=== PATIENT | female | born 1995 | race Native Hawaiian/Other Pacific Islander ===

== ENCOUNTER 2018-02-21 07:32 | Inpatient (IN) | payer OTHER ==
[2018-02-21] MEDS ORDERED: SUBLIMAZE IV PRN (08:10)
[2018-02-21] MEDS ORDERED: POLYCILLIN/NS 2 GM/100 ML 2 GM/100 ML BAG IV ONE (08:10)
[2018-02-21] MEDS ORDERED: XYLOCAINE 2% INFILTRATI ONE (08:10)
[2018-02-21] MEDS ORDERED: ePHEDrine SULFATE IV PRN ×2 (08:10→10:36)
[2018-02-21] MEDS ORDERED: BRETHINE SUB-Q PRN (08:10)
--- NOTE | 2018-02-21 08:19 | History and Physical Report ---
History of Present Illness Date of examination: 02/21/18 (walk in) Date of admission: 02/21/18 08:02 History of present illness: 22yo @ 39 weeks Pt sees a Her last appt was last Wednesday. She gives a hx of anemia with this and her previous - "I had to have a blood transfusion." Pt also states she has a thyroid problem but isn't sure if it is hyper or hypo. No meds. EDC 02-28-18 Preg.Hx: 1. 2012 only complication anemia - had transfusion Pt denies any other medical problems. Denies any surgeries. Denies ETOH, smoking , drug use. Pt states she has had care with . Past History - Obstetrical History Expected Date of Delivery: 02/28/18 Actual Gestation: 39 Week(s) 0 Day(s) : 2 Para: 1 Hx # Term Pregnancies: 1 Number of Living Children: 1 - Vital Signs Vital signs: Vital Signs Pulse BP 54 L 135/90 02/21/18 08:02 02/21/18 08:02 Temp Pulse Resp BP Pulse Ox 54 L 135/90 02/21/18 08:02 02/21/18 08:02 - Physical Exam Breasts: Positive: deferred Cardiovascular: Regular rate, Normal S1, Normal S2 Lungs: Positive: Normal air movement Abdomen: Positive: normal appearance, soft, normal bowel sounds. Negative: distention, tenderness Genitourinary (Female): Positive: normal external genitalia, normal perenium Vulva: both: normal Vagina: Positive: normal moisture. Negative: discharge Cervix: Negative: lesion, discharge Uterus: Positive: normal size, normal contour Adnexa: both: normal Anus/Rectum: Positive: normal perianal skin, heme negative. Negative: rectal mass, hemorrhoids Extremities: Positive: normal Deep Tendon Reflex Grade: Normal +2 - Obstetrical FHR: category 1 Uterine Contraction Monitor Mode: External Cervical Dilatation: 8 (per electronic systems technician) Cervical Effacement Percentage: 90 station: 0 Uterine Contraction Pattern: Regular Uterine Tone Measurement Phase: Resting Uterine Contraction Intensity: Moderate Results All other labs normal. GBS unknown Assessment and Plan 22yo @ 39 weeks by pt date of 02-28-18 Pt has had care with last visit last Wednesday GBS unknown. All OB labs and thyroid function test ordered. aware of admission. Anticipate delivery.
[2018-02-21] MEDS ORDERED: PITOCin/NS 20 UNIT/1000ML DRIP 20 UNITS/1,000 ML BAG IV SCH (09:00)
[2018-02-21] MEDS ORDERED: LACTATED RINGERS 1,000 ML IV SCH (09:00)
[2018-02-21 09:29] LABS: Hematocrit 25.9 % (30.3-42.9); Hemoglobin 8.2 gm/dl (10.1-14.3); Mean Corpuscular HGB Conc 32 % (30-34); Mean Corpuscular Hemoglobin 26 pg (28-32); Mean Corpuscular Volume 82 fl (79-97); Platelet Count 136 K/mm3 (140-440); Red Blood Count 3.16 M/mm3 (3.65-5.03); Red Cell Distribution Width 18.1 % (13.2-15.2)
[2018-02-21 09:35] LABS: Bilirubin,Urine NEG (Negative); Blood,Urine NEG (Negative); Color,Urine Yellow (Yellow); Hyaline Casts,Urine 1 /LPF; Urobilinogen,Urine < 2.0 mg/dL (<2.0)
[2018-02-21] MEDS ORDERED: NARCAN 2 MG/2 ML ONE (09:37)
[2018-02-21 09:41] LABS: Amphetamine Screen,Urine PRESUMPTIVE NEGATIVE; Benzodiazepines Screen,Urine PRESUMPTIVE NEGATIVE; Cannabinoid Screen,Urine PRESUMPTIVE NEGATIVE; Cocaine Screen,Urine PRESUMPTIVE NEGATIVE; Methadone Screen,Urine PRESUMPTIVE NEGATIVE; Opiate Screen,Urine PRESUMPTIVE NEGATIVE
[2018-02-21 09:59] LABS: Free T4 (Free Thyroxine) 0.16 ng/dL (0.76-1.46); Rubella IgG Antibody Immune (Immune)
[2018-02-21] MEDS ORDERED: NARCAN 2 MG/2 ML IV PRN (10:36)
--- NOTE | 2018-02-21 10:37 | Anesthesia Consultation ---
Anesthesia Consult and Med Hx Date of service: 02/21/18 - Airway Anesthetic Teeth Evaluation: Good ROM Head & Neck: Adequate Mental/Hyoid Distance: Adequate Mallampati Class: Class II Intubation Access Assessment: Probably Good - Pre-Operative Health Status ASA Pre-Surgery Classification: ASA2 Proposed Anesthetic Plan: Epidural, Spinal - Pulmonary Hx Asthma: No COPD: No Hx Pneumonia: No - Cardiovascular System Hx Hypertension: No - Central Nervous System Hx Seizures: No Hx Psychiatric Problems: No - Endocrine Hx Renal Disease: No Hx End Stage Renal Disease: No Hx Hypothyroidism: Yes Hx Hyperthyroidism: Yes (unsure of thyroid condition) - Hematic Hx Anemia: No Hx Sickle Cell Disease: No - Other Systems Hx Alcohol Use: No
[2018-02-21] MEDS ORDERED: fentaNYL-BUPIV 2 MCG/ML-0.125% 200 MCG/100 ML BAG EPIDURAL SCH (11:00)
[2018-02-21 11:12] LABS: Anisocytosis 1+; Basophils % (Manual) 0 % (0.0-1.8); Platelet Estimate Cons; Total Cells Counted 100
--- NOTE | 2018-02-21 12:05 | Progress Note ---
Assessment and Plan pt sleeping soundly. SVE BBOW AROM light stained meconium fluid ISE applied. 9, 100,-1 Pit was ordered Too be started. Anticipate delivery Subjective - Subjective Date of service: 02/21/18 (comfortable with epidural) Principal diagnosis: IUP @ 39 weeks walkin to [facility] with Dr. Gar Interval history: 22yo @ 39 weeks Pt sees a Her last appt was last Wednesday. She gives a hx of anemia with this and her previous - "I had to have a blood transfusion." Pt also states she has a thyroid problem but isn't sure if it is hyper or hypo. No meds. EDC 02-28-18 Preg.Hx: 2012 only complication anemia - had transfusion Pt denies any other medical problems. Denies any surgeries. Denies ETOH, smoking , drug use. Pt states she has had care with . Patient reports: movement normal Objective - Vital Signs Vital Signs: Vital Signs - 12hr 02/21/18 02/21/18 02/21/18 08:02 08:45 09:27 Temperature Pulse Rate 54 L 62 Respiratory 20 Rate Blood Pressure 135/90 137/94 O2 Sat by Pulse Oximetry 02/21/18 02/21/18 02/21/18 10:06 10:36 10:53 Temperature Pulse Rate 60 57 L 56 L Respiratory Rate Blood Pressure 116/85 141/96 134/85 O2 Sat by Pulse Oximetry 02/21/18 02/21/18 02/21/18 10:55 10:56 10:57 Temperature Pulse Rate 64 61 51 L Respiratory Rate Blood Pressure 121/61 124/77 O2 Sat by Pulse 98 Oximetry 02/21/18 02/21/18 02/21/18 10:59 11:00 11:01 Temperature Pulse Rate 75 70 60 Respiratory Rate Blood Pressure 109/73 110/75 O2 Sat by Pulse 100 Oximetry 02/21/18 02/21/18 02/21/18 11:03 11:05 11:07 Temperature Pulse Rate 61 71 75 Respiratory Rate Blood Pressure 114/76 109/72 105/73 O2 Sat by Pulse 99 Oximetry 02/21/18 02/21/18 02/21/18 11:09 11:10 11:11 Temperature Pulse Rate 75 80 77 Respiratory Rate Blood Pressure 99/69 102/71 O2 Sat by Pulse 99 Oximetry 02/21/18 02/21/18 02/21/18 11:13 11:15 11:17 Temperature Pulse Rate 55 L 67 64 Respiratory Rate Blood Pressure 119/76 104/75 107/74 O2 Sat by Pulse 99 Oximetry 02/21/18 02/21/18 02/21/18 11:19 11:20 11:21 Temperature Pulse Rate 57 L 60 80 Respiratory Rate Blood Pressure 118/79 104/74 O2 Sat by Pulse 100 Oximetry 02/21/18 02/21/18 02/21/18 11:25 11:27 11:29 Temperature Pulse Rate 58 L 60 56 L Respiratory Rate Blood Pressure 116/75 119/80 122/80 O2 Sat by Pulse 100 Oximetry 02/21/18 02/21/18 02/21/18 11:30 11:31 11:33 Temperature Pulse Rate 72 62 69 Respiratory 12 Rate Blood Pressure 109/70 116/77 111/74 O2 Sat by Pulse 100 Oximetry 02/21/18 02/21/18 02/21/18 11:35 11:37 11:39 Temperature Pulse Rate 73 58 L 65 Respiratory Rate Blood Pressure 109/70 111/70 109/72 O2 Sat by Pulse 99 Oximetry 02/21/18 02/21/18 02/21/18 11:40 11:41 11:42 Temperature 97.7 F Pulse Rate 74 78 Respiratory Rate Blood Pressure 111/70 O2 Sat by Pulse 100 Oximetry 02/21/18 02/21/18 02/21/18 11:43 11:45 11:47 Temperature Pulse Rate 63 73 62 Respiratory Rate Blood Pressure 125/101 104/70 114/77 O2 Sat by Pulse 99 Oximetry 02/21/18 02/21/18 02/21/18 11:49 11:50 11:51 Temperature Pulse Rate 75 73 59 L Respiratory Rate Blood Pressure 106/75 120/77 O2 Sat by Pulse 98 Oximetry 02/21/18 02/21/18 02/21/18 11:53 11:55 11:56 Temperature Pulse Rate 91 H 70 55 L Respiratory Rate Blood Pressure 102/65 129/83 O2 Sat by Pulse 98 Oximetry 02/21/18 02/21/18 02/21/18 11:57 11:59 12:00 Temperature Pulse Rate 64 90 87 Respiratory Rate Blood Pressure 125/66 105/60 O2 Sat by Pulse 98 Oximetry 02/21/18 02/21/18 12:01 12:03 Temperature Pulse Rate 88 55 L Respiratory Rate Blood Pressure 104/62 123/79 O2 Sat by Pulse Oximetry - Exam Breasts: deferred Cardiovascular: Regular rate Lungs: Normal air movement Abdomen: Present: normal appearance, soft. Absent: distention, tenderness Uterus: Present: normal FHR: auscultation normal, category 1 Uterine Contraction Monitor Mode: Internal Cervical Dilatation: 9 (ISE/IUPC placed) Cervical Effacement Percentage: 100 station: -1 Uterine Contraction Pattern: Regular Uterine Tone Measurement Phase: Resting Uterine Contraction Intensity: Moderate Extremities: normal Deep Tendon Reflex Grade: Normal +2 - Labs Labs: Abnormal Labs 02/21/18 02/21/18 08:54 08:54 RBC 3.16 L Hgb 8.2 L Hct 25.9 L MCH 26 L RDW 18.1 H Plt Count 136 L Nucleated RBC % 1.0 H Free T4 0.16 L Laboratory Results - last 24 hr 02/21/18 02/21/18 02/21/18 08:54 08:54 08:54 WBC 7.3 RBC 3.16 L Hgb 8.2 L Hct 25.9 L MCV 82 MCH 26 L MCHC 32 RDW 18.1 H Plt Count 136 L Add Manual Diff Complete Total Counted 100 Seg Neuts % (Manual) 63.0 Band Neutrophils % 0 Lymphocytes % (Manual) 34.0 Reactive Lymphs % (Man) 0 Monocytes % (Manual) 2.0 Eosinophils % (Manual) 1.0 Basophils % (Manual) 0 Metamyelocytes % 0 Myelocytes % 0 Promyelocytes % 0 Blast Cells % 0 Nucleated RBC % 1.0 H Seg Neutrophils # Man 4.6 Band Neutrophils # 0.0 Lymphocytes # (Manual) 2.5 Abs React Lymphs (Man) 0.0 Monocytes # (Manual) 0.1 Eosinophils # (Manual) 0.1 Basophils # (Manual) 0.0 Metamyelocytes # 0.0 Myelocytes # 0.0 Promyelocytes # 0.0 Blast Cells # 0.0 WBC Morphology Not Reportable Hypersegmented Neuts Not Reportable Hyposegmented Neuts Not Reportable Hypogranular Neuts Not Reportable Smudge Cells Not Reportable Toxic Granulation Not Reportable Toxic Vacuolation Not Reportable Dohle Bodies Not Reportable Pelger-Huet Anomaly Not Reportable Roberta Rods Not Reportable Platelet Estimate Cons Clumped Platelets Not Reportable Plt Clumps, EDTA Not Reportable Large Platelets Not Reportable Giant Platelets Not Reportable Platelet Satelliting Not Reportable Plt Morphology Comment Not Reportable RBC Morphology Not Reportable Dimorphic RBCs Not Reportable Polychromasia Not Reportable Hypochromasia Not Reportable Poikilocytosis Not Reportable Anisocytosis 1+ Microcytosis Not Reportable Macrocytosis Not Reportable Spherocytes Not Reportable Pappenheimer Bodies Not Reportable Sickle Cells Not Reportable Target Cells Not Reportable Tear Drop Cells Not Reportable Ovalocytes Not Reportable Helmet Cells Not Reportable Cantu-Buckhead Bodies Not Reportable [place] Rings Not Reportable Meadow Cells Not Reportable Bite Cells Not Reportable Crenated Cell Not Reportable Elliptocytes Not Reportable Acanthocytes (Spur) Not Reportable Rouleaux Not Reportable Hemoglobin C Crystals Not Reportable Schistocytes Not Reportable Malaria parasites Not Reportable Sickle Cell Screen Negative Shravan Bodies Not Reportable Hem Pathologist Commnt No Free T4 Urine Color Yellow Urine Turbidity Clear Urine pH 6.0 Ur Specific Strang 1.009 Urine Protein 100 mg/dl Urine Glucose (UA) Neg Urine Ketones Neg Urine Blood Neg Urine Nitrite Neg Urine Bilirubin Neg Urine Urobilinogen < 2.0 Ur Leukocyte Esterase Neg Urine WBC (Auto) 4.0 Urine RBC (Auto) 3.0 U Epithel Cells (Auto) 1.0 Hyaline Casts 1 Urine Opiates Screen Presumptive negative Urine Methadone Screen Presumptive negative Ur Barbiturates Screen Presumptive negative Ur Phencyclidine Scrn Presumptive negative Ur Amphetamines Screen Presumptive negative U Benzodiazepines Scrn Presumptive negative Urine Cocaine Screen Presumptive negative U Marijuana (THC) Screen Presumptive negative Drugs of Abuse Note Disclamer RPR HIV 1&2 Antibody Rapid HIV P24 Antigen Rubella IgG Antibody Blood Type Antibody Screen 02/21/18 02/21/18 02/21/18 08:54 08:54 08:54 WBC RBC Hgb Hct MCV MCH MCHC RDW Plt Count Add Manual Diff Total Counted Seg Neuts % (Manual) Band Neutrophils % Lymphocytes % (Manual) Reactive Lymphs % (Man) Monocytes % (Manual) Eosinophils % (Manual) Basophils % (Manual) Metamyelocytes % Myelocytes % Promyelocytes % Blast Cells % Nucleated RBC % Seg Neutrophils # Man Band Neutrophils # Lymphocytes # (Manual) Abs React Lymphs (Man) Monocytes # (Manual) Eosinophils # (Manual) Basophils # (Manual) Metamyelocytes # Myelocytes # Promyelocytes # Blast Cells # WBC Morphology Hypersegmented Neuts Hyposegmented Neuts Hypogranular Neuts Smudge Cells Toxic Granulation Toxic Vacuolation Dohle Bodies Pelger-Huet Anomaly Roberta Rods Platelet Estimate Clumped Platelets Plt Clumps, EDTA Large Platelets Giant Platelets Platelet Satelliting Plt Morphology Comment RBC Morphology Dimorphic RBCs Polychromasia Hypochromasia Poikilocytosis Anisocytosis Microcytosis Macrocytosis Spherocytes Pappenheimer Bodies Sickle Cells Target Cells Tear Drop Cells Ovalocytes Helmet Cells Cantu-Buckhead Bodies [place] Rings Meadow Cells Bite Cells Crenated Cell Elliptocytes Acanthocytes (Spur) Rouleaux Hemoglobin C Crystals Schistocytes Malaria parasites Sickle Cell Screen Shravan Bodies Hem Pathologist Commnt Free T4 0.16 L Urine Color Urine Turbidity Urine pH Ur Specific Strang Urine Protein Urine Glucose (UA) Urine Ketones Urine Blood Urine Nitrite Urine Bilirubin Urine Urobilinogen Ur Leukocyte Esterase Urine WBC (Auto) Urine RBC (Auto) U Epithel Cells (Auto) Hyaline Casts Urine Opiates Screen Urine Methadone Screen Ur Barbiturates Screen Ur Phencyclidine Scrn Ur Amphetamines Screen U Benzodiazepines Scrn Urine Cocaine Screen U Marijuana (THC) Screen Drugs of Abuse Note RPR Nonreactive HIV 1&2 Antibody Rapid HIV P24 Antigen Rubella IgG Antibody Immune Blood Type O POSITIVE Antibody Screen Negative 02/21/18 08:54 WBC RBC Hgb Hct MCV MCH MCHC RDW Plt Count Add Manual Diff Total Counted Seg Neuts % (Manual) Band Neutrophils % Lymphocytes % (Manual) Reactive Lymphs % (Man) Monocytes % (Manual) Eosinophils % (Manual) Basophils % (Manual) Metamyelocytes % Myelocytes % Promyelocytes % Blast Cells % Nucleated RBC % Seg Neutrophils # Man Band Neutrophils # Lymphocytes # (Manual) Abs React Lymphs (Man) Monocytes # (Manual) Eosinophils # (Manual) Basophils # (Manual) Metamyelocytes # Myelocytes # Promyelocytes # Blast Cells # WBC Morphology Hypersegmented Neuts Hyposegmented Neuts Hypogranular Neuts Smudge Cells Toxic Granulation Toxic Vacuolation Dohle Bodies Pelger-Huet Anomaly Roberta Rods Platelet Estimate Clumped Platelets Plt Clumps, EDTA Large Platelets Giant Platelets Platelet Satelliting Plt Morphology Comment RBC Morphology Dimorphic RBCs Polychromasia Hypochromasia Poikilocytosis Anisocytosis Microcytosis Macrocytosis Spherocytes Pappenheimer Bodies Sickle Cells Target Cells Tear Drop Cells Ovalocytes Helmet Cells Cantu-Buckhead Bodies [place] Rings [place] Cells Bite Cells Crenated Cell Elliptocytes Acanthocytes (Spur) Rouleaux Hemoglobin C Crystals Schistocytes Malaria parasites Sickle Cell Screen Shravan Bodies Hem Pathologist Commnt Free T4 Urine Color Urine Turbidity Urine pH Ur Specific Strang Urine Protein Urine Glucose (UA) Urine Ketones Urine Blood Urine Nitrite Urine Bilirubin Urine Urobilinogen Ur Leukocyte Esterase Urine WBC (Auto) Urine RBC (Auto) U Epithel Cells (Auto) Hyaline Casts Urine Opiates Screen Urine Methadone Screen Ur Barbiturates Screen Ur Phencyclidine Scrn Ur Amphetamines Screen U Benzodiazepines Scrn Urine Cocaine Screen U Marijuana (THC) Screen Drugs of Abuse Note RPR HIV 1&2 Antibody Rapid Non react HIV P24 Antigen Non react Rubella IgG Antibody Blood Type Antibody Screen
[2018-02-21] MEDS ORDERED: AMPICILLIN/NS 1 GM/50 ML 1 GM/50 ML BAG IV SCH (12:12)
[2018-02-21] MEDS: PITOCin/NS 30 UNIT/500ML 30 UNITS/500 ML BAG IV SCH ×2 (12:17→12:44)
[2018-02-21] MEDS ORDERED: METHERGINE IM ONE ×2 (13:33→14:43)
[2018-02-21] MEDS ORDERED: CYTOTEC ONE (13:33)
[2018-02-21] MEDS ORDERED: CYTOTEC PR ONE (14:43)
[2018-02-21] MEDS ORDERED: NORCO 5/325 PO PRN (14:46)
[2018-02-21] MEDS ORDERED: TYLENOL PO PRN (14:46)
[2018-02-21] MEDS ORDERED: ZOFRAN IV PRN (14:46)
[2018-02-21] MEDS ORDERED: BENADRYL PO PRN (14:46)
[2018-02-21] MEDS ORDERED: MILK OF MAGNESIA PO PRN (14:46)
[2018-02-21] MEDS ORDERED: PHENERGAN PO PRN (14:46)
[2018-02-21] MEDS ORDERED: TUCKS PAD TP PRN (14:46)
[2018-02-21] MEDS ORDERED: LANSINOH TP PRN (14:46)
[2018-02-21] MEDS ORDERED: NACL 0.9% 500 ML 500 ML IV ONE (14:56)
[2018-02-21] MEDS ORDERED: TYLENOL PO ONE (14:58)
[2018-02-21] MEDS ORDERED: BENADRYL PO ONE (14:59)
[2018-02-21] MEDS ORDERED: SODIUM CHLORIDE FLUSH SYRINGE 10 ML IV NR (15:00)
--- NOTE | 2018-02-21 15:00 | Procedure Note ---
OB Delivery Note - Delivery Date of Delivery: 02/21/18 Grinder Machine Setter: JHONNY MCKENNA Estimated blood loss: other (600ml) - Vaginal Delivery presentation: vertex Delivery position: OP Intrapartum events: other(please specify) (walk in to [facility]; Care with ; chronic anemia; thyroid dx) Delivery induction: none Delivery augmentation: pitocin Delivery monitor: external uterine, internal FHT Route of delivery: Delivery placenta: spontaneous Delivery cord: nuchal cord, 3 umbilical vessels Episiotomy: midline Delivery laceration: 2nd degree, other (periurethral) Delivery repair: vicryl Anesthesia: epidural Delivery comments: RT & NICU to delivery. Multiple and prolong deep variables live born male over 2nd degree episiotomy Cord clamped and cut baby handed to waiting NICU team. Cord blood obt Placenta and membrane del complete and intact, 3 vessel cord. Several lg clots expressed, fundus boggy. Methergine IM and Cytotec 800mcg CO given. Placenta to pathology. Right leonides-urethral tear repaired with 2-0 vicryl and 2nd degree lac/epis repaired with 3-20 vicryl in usual fashion. Austin cath replaced due to blood loss and location of repair. 8/9, EBL 600, Wgt 6-9. Pt and baby remain LDR stable. [facility] Will monitor closely for poss need for transfusion. aware. - A at 1 minute: 8 at 5 minutes: 9 Infant Gender: Male (wgt 6-9)
[2018-02-21 15:35] LABS: Hepatitis C Virus Antibody Non-Reactive (NonReactive)
[2018-02-21 17:30] LABS: Hematocrit 22.4 % (30.3-42.9); Hemoglobin 6.9 gm/dl (10.1-14.3)
[2018-02-21] MEDS ORDERED: TYLENOL ONE (17:52)
[2018-02-21] MEDS ORDERED: NACL 0.9% 500 ML 500 ML ONE (18:09)
[2018-02-21] MEDS: MOTRIN PO SCH (19:09)
[2018-02-21] MEDS: METHERGINE PO SCH ×2 (19:09→22:08)
[2018-02-21] MEDS ORDERED: MINERAL OIL PO PRN (22:00)
[2018-02-21] MEDS ORDERED: DULCOLAX PR PRN (22:00)
[2018-02-21] MEDS: COLACE PO SCH (22:08)
[2018-02-21] MEDS: FEOSOL PO SCH (22:08)
[2018-02-22] MEDS: MOTRIN PO SCH ×4 (03:17→21:50)
[2018-02-22 05:34] LABS: Hematocrit 32.3 % (30.3-42.9); Hemoglobin 10.7 gm/dl (10.1-14.3); Mean Corpuscular HGB Conc 33 % (30-34); Mean Corpuscular Hemoglobin 27 pg (28-32); Mean Corpuscular Volume 83 fl (79-97); Red Blood Count 3.89 M/mm3 (3.65-5.03); Red Cell Distribution Width 17.5 % (13.2-15.2)
[2018-02-22 05:36] LABS: Platelet Count 92 K/mm3 (140-440)
[2018-02-22] MEDS: METHERGINE PO SCH (05:50)
[2018-02-22] MEDS ORDERED: SYNTHROID PO SCH (06:00)
--- NOTE | 2018-02-22 06:30 | Event Note ---
Date: 02/22/18 (TSH elevated) Consulted with . Pt gives hx of a known thyroid disorder and is taking Levothyroxine 75mcg QD. TSH on admission 204.8. Consult to hospitalist ordered. RN on / notified.
--- NOTE | 2018-02-22 07:54 | Progress Note ---
Assessment and Plan Patient reports feeling well, no s/s anemia. Lochia scant, fundus firm. b/p's 120-130's/90's, afebrile, pulse 50-60's. Hospitalist consult ordered to manage thyroid disfunction. Pre-e labs ordered, continue current management. Will consult Dr. Goode. - Patient Problems (1) Chronic anemia Current Visit: Yes Status: Acute Plan to address problem: transfusion x 2 units post transfusion H&H 10.7/32.3 no s/s anemia at this time (2) Spontaneous vaginal delivery Current Visit: Yes Status: Acute (3) Thyroid disease during Current Visit: Yes Status: Acute Qualifiers: Trimester: unspecified trimester Qualified Code(s): O99.280 - Endocrine, nutritional and metabolic diseases complicating , unspecified trimester ; E07.9 - Disorder of thyroid, unspecified Plan to address problem: TSH 204, free T4 0.16 Hospitalist consult ordered (4) Blood pressure elevated without history of HTN Current Visit: Yes Status: Acute Plan to address problem: diastolic b/p's in the 90's Pt reports frequent COREAS, although none at this time periorbital edema Platelets initially 138; dropped to 92 after delivery +100 urine protein on admission Will get pre-e labs and consult Dr. Goode Subjective - Subjective Date of service: 02/22/18 Principal diagnosis: day #1, s/p trasnfusion, hypothyroid Patient reports: appetite normal, voiding normally, pain well controlled, ambulating normally, no nauseated : doing well, bottle feeding Objective - Vital Signs Latest vital signs: Vital Signs Temp Pulse Resp BP BP Pulse Ox 02/22/18 05:00 97.5 F L 53 L 18 122/92 02/22/18 01:10 98.5 F 61 22 124/92 97 02/21/18 22:44 98.2 F 58 L 18 129/96 98 02/21/18 22:20 98.2 F 60 18 127/91 98 02/21/18 21:50 98.9 F 62 18 131/90 98 02/21/18 21:20 99.4 F 61 16 129/88 98 02/21/18 20:52 100.2 F H 66 18 135/92 98 02/21/18 20:42 100.1 F H 63 18 138/92 97 05/07/18 20:37 99.8 F H 61 18 137/92 98 05/07/18 20:15 99.8 F H 61 18 137/92 98 05/07/18 20:10 100.4 F H 67 18 130/93 97 05/07/18 19:40 99.8 F H 65 18 128/91 97 05/07/18 19:10 99.5 F 66 16 125/89 98 05/07/18 18:40 99.8 F H 64 16 135/93 98 05/07/18 18:25 100.7 F H 72 18 123/89 99 05/07/18 16:10 99.6 F 88 16 114/83 100 05/07/18 15:41 113 H 100 05/07/18 15:36 111 H 100 05/07/18 15:31 107 H 100 05/07/18 15:27 111 H 160/85 05/07/18 15:26 121 H 99 05/07/18 15:21 117 H 100 05/07/18 15:20 122 H 63 L 05/07/18 15:12 122 H 138/84 05/07/18 14:57 126 H 134/74 05/07/18 14:42 115 H 131/89 05/07/18 14:27 108 H 123/82 05/07/18 14:26 102 H 132/73 05/07/18 14:23 100 H 183/80 05/07/18 14:21 102 H 196/74 05/07/18 14:13 90 138/65 05/07/18 13:57 35 L 107/74 05/07/18 13:52 67 113/76 05/07/18 13:46 61 99/68 05/07/18 13:41 68 101/70 05/07/18 13:37 72 100/66 05/07/18 13:35 58 L 118/85 05/07/18 13:20 71 118/74 05/07/18 13:16 79 98 05/07/18 13:11 82 98 05/07/18 13:08 96 H 98/63 05/07/18 13:06 87 98 05/07/18 13:00 64 100 05/07/18 12:55 57 L 100 05/07/18 12:50 80 109/73 99 05/07/18 12:45 59 L 100 05/07/18 12:40 66 100 05/07/18 12:35 70 100 05/07/18 12:34 80 106/74 05/07/18 12:30 69 99 05/07/18 12:25 84 99 05/07/18 12:20 83 100 05/07/18 12:19 81 104/71 05/07/18 12:17 83 112/77 05/07/18 12:15 65 112/78 99 05/07/18 12:13 65 110/74 05/07/18 12:11 55 L 127/78 05/07/18 12:10 75 99 05/07/18 12:09 62 112/78 05/0718 12:07 68 109/73 05/0718 12:05 83 112/70 99 05/07/18 12:03 55 L 123/79 05/0718 12:01 88 104/62 05/07/18 12:00 87 98 05/0718 11:59 90 105/60 05/07/18 11:57 64 125/66 05/07/18 11:56 55 L 129/83 05/07/18 11:55 70 98 05/07/18 11:53 91 H 102/65 05/07/18 11:51 59 L 120/77 05/07/18 11:50 73 98 05/07/18 11:49 75 106/75 05/07/18 11:47 62 114/77 05/07/18 11:45 73 104/70 99 05/07/18 11:43 63 125/101 05/07/18 11:42 97.7 F 05/07/18 11:41 78 111/70 05/07/18 11:40 74 100 05/07/18 11:39 65 109/72 05/07/18 11:37 58 L 111/70 05/07/18 11:35 73 109/70 99 05/07/18 11:33 69 111/74 05/07/18 11:31 62 116/77 05/07/18 11:30 72 12 109/70 100 05/07/18 11:29 56 L 122/80 05/07/18 11:27 60 119/80 05/07/18 11:25 58 L 116/75 100 05/07/18 11:21 80 104/74 02/21/18 11:20 60 100 02/21/18 11:19 57 L 118/79 02/21/18 11:17 64 107/74 02/21/18 11:15 67 104/75 99 02/21/18 11:13 55 L 119/76 02/21/18 11:11 77 102/71 02/21/18 11:10 80 99 02/21/18 11:09 75 99/69 02/21/18 11:07 75 105/73 02/21/18 11:05 71 109/72 99 02/21/18 11:03 61 114/76 02/21/18 11:01 60 110/75 02/21/18 11:00 70 100 02/21/18 10:59 75 109/73 02/21/18 10:57 51 L 124/77 02/21/18 10:56 61 121/61 02/21/18 10:55 64 98 02/21/18 10:53 56 L 134/85 02/21/18 10:36 57 L 141/96 02/21/18 10:06 60 116/85 02/21/18 09:27 20 02/21/18 08:45 62 137/94 02/21/18 08:02 54 L 135/90 Intake and Output 02/21/18 02/21/18 02/22/18 15:59 23:59 07:59 Intake Total 860 120 Output Total 100 1200 Balance 760 -1080 Intake: Oral 360 120 Blood Product 500 Leukoreduced Red Blood 250 Cells Unit [id number] Leukoreduced Red Blood 250 Cells Unit [id number] Output: Urine 100 1200 Indwelling Catheter 100 1200 Other: Total, Intake Amount 360 120 Total, Output Amount 100 1200 # Voids Void 1 Weight 43.091 kg - Exam Breasts: Present: normal Cardiovascular: Present: Regular rate Lungs: Present: Clear to auscultation, Normal air movement Abdomen: Present: normal appearance, soft Vulva: both: laceration/episiotomy Uterus: Present: normal, firm, fundal height at umbilicus Extremities: Present: normal Deep Tendon Reflex Grade: Normal +2 Incision: Present: normal, dry, intact Comments: periorbital edema - Labs Labs: Abnormal lab results 02/21/18 02/21/1818 Range/Units 08:54 08:54 08:54 WBC (4.5-11.0) K/mm3 RBC 3.16 L (3.65-5.03) M/mm3 Hgb 8.2 L (10.1-14.3) gm/dl Hct 25.9 L (30.3-42.9) % MCH 26 L (28-32) pg RDW 18.1 H (13.2-15.2) % Plt Count 136 L (140-440) K/mm3 Nucleated RBC % 1.0 H (0.0-0.9) % TSH 204.800 H (0.270-4.200) mlU/mL Free T4 0.16 L (0.76-1.46) ng/dL Crossmatch See Detail 02/21/18 02/22/18 Range/Units 17:05 04:57 WBC 12.7 H (4.5-11.0) K/mm3 RBC (3.65-5.03) M/mm3 Hgb 6.9 L (10.1-14.3) gm/dl Hct 22.4 L (30.3-42.9) % MCH 27 L (28-32) pg RDW 17.5 H (13.2-15.2) % Plt Count 92 L (140-440) K/mm3 Nucleated RBC % (0.0-0.9) % TSH (0.270-4.200) mlU/mL Free T4 (0.76-1.46) ng/dL Crossmatch
[2018-02-22 08:46] LABS: Alanine Aminotransferase 7 units/L (7-56); Uric Acid 5.9 mg/dL (3.5-7.6)
--- NOTE | 2018-02-22 09:07 | Event Note ---
Date: 02/22/18 Agree with MW note and exam. Will monitor closely. Will await input from medicine team regarding pt thyroid dz. BP borderline diastolic at this time. Pt otherwise shows no s/sx of pre E. Does have thrombocytopenia but her records are not on the chart at this time so it is unclear if this has been present during the or not. Will con't to monitor at this time.
[2018-02-22] MEDS: PRENATAL VITAMIN PO SCH (10:09)
[2018-02-22] MEDS: FEOSOL PO SCH ×2 (10:09→21:50)
[2018-02-22] MEDS: COLACE PO SCH ×2 (10:09→21:50)
[2018-02-22 10:39] LABS: Free T4 (Free Thyroxine) 0.13 ng/dL (0.76-1.46)
--- NOTE | 2018-02-22 13:00 | Consultation ---
History of Present Illness - Reason for Consult Consult date: 02/22/18 Severe hypothyroidism Requesting physician: GRISEL BUTT - History of Present Illness 22-year-old female patient recently had normal vaginal delivery, and routine lab work showed severe hypothyroidism With very high TSH and low T4, hospitalist services were consulted for medical management. Patient reports to me that she had hypothyroidism for many years, was on low dose Synthroid however has not been Taking thyroid medications for the last 6 years, Patient complains of generalized weakness and fatigue, and no other symptoms Patient does not recall getting thyroid tests done during . Today her TSH 204.8, repeat level 174.1 [N 0.27 - 4.20] T40.16 repeat levels 0.13 [N 0.76 - 1.46] Labs are consistent with severe hypothyroidism Past History Past Medical History: anemia, hypothyroidism Past Surgical History: No surgical history Social history: lives with family. denies: smoking, alcohol abuse, prescription drug abuse Family history: other (hypothyroidism) Medications and Allergies Allergies Allergy/AdvReac Type Severity Reaction Status Date / Time No Known Allergies Allergy Unverified 02/21/18 08:38 Home Medications Medication Instructions Recorded Confirmed Last Taken Type Levothyroxine Sodium [Synthroid] 75 mcg PO DAILY 02/21/18 02/21/18 02/20/18 07: 00 History 1 Levothyroxine Sodium [Synthroid] 100 mcg PO DAILY #30 tablet 02/22/18 Unknown Rx Active Meds: Active Medications Acetaminophen (Tylenol) 650 mg PO Q4H PRN PRN Reason: Pain MILD(1-3)/Fever >100.5/COREAS Acetaminophen/Hydrocodone Bitart ([place] 5/325) 2 each PO Q6H PRN PRN Reason: Pain, Moderate (4-6) Bisacodyl (Dulcolax) 10 mg [place] BID PRN PRN Reason: Constipation Diphenhydramine HCl (Benadryl) 25 mg PO Q6H PRN PRN Reason: Itching Last Admin: 02/21/18 17:58 Dose: 25 mg Diphtheria/Tetanus/Acell Pertussis (Boostrix) 0.5 ml IM .ONCE ONE Stop: 02/22/18 14:47 Docusate Sodium (Colace) 100 mg PO BID [facility] Last Admin: 02/22/18 10:09 Dose: 100 mg Ferrous Sulfate (Feosol) 325 mg PO BID [facility] Last Admin: 02/22/18 10:09 Dose: 325 mg Ibuprofen (Motrin) 600 mg PO Q6H [facility] Last Admin: 02/22/18 10:11 Dose: Not Given Levothyroxine Sodium (Synthroid) 75 mcg PO DAILY@0600 [facility] Last Admin: 02/22/18 06:24 Dose: 75 mcg Levothyroxine Sodium (Synthroid) 100 mcg IV DAILY@0600 [facility] Levothyroxine Sodium (Synthroid) 150 mcg IV ONCE ONE Stop: 02/23/18 13:01 Magnesium Hydroxide (Milk Of Magnesia) 30 ml PO HS PRN PRN Reason: Constipation Multi-Ingredient Ointment (Lansinoh) 1 applic TP PRN PRN PRN Reason: Sore Nipples Multivitamins/Iron/Calcium ( Vitamin) 1 each PO QDAY [facility] Last Admin: 02/22/18 10:09 Dose: 1 each Ondansetron HCl (Zofran) 4 mg IV Q8H PRN PRN Reason: Nausea And Vomiting Promethazine HCl (Phenergan) 25 mg PO Q6H PRN PRN Reason: Nausea And Vomiting Witch Cat/Glycerin (Tucks Pad) 1 each TP PRN PRN PRN Reason: Hemorrhoid/cleansing/soothing Last Admin: 02/22/18 05:50 Dose: 1 each Review of Systems Constitutional: fatigue, weakness, no weight loss, no weight gain Ears, nose, mouth and throat: no hoarseness, no neck lump Cardiovascular: no chest pain, no palpitations Respiratory: no cough, no shortness of breath Gastrointestinal: no abdominal pain, no nausea, no vomiting Genitourinary Female: no flank pain, no dysuria Musculoskeletal: no myalgias, no arthritis Integumentary: no rash, no lesions Neurological: no parathesias, no numbness, no seizures Psychiatric: no anxiety, no depression Endocrine: no cold intolerance, no heat intolerance, no polydipsia, no polyuria Hematologic/Lymphatic: no easy bruising, no easy bleeding Allergic/Immunologic: no urticaria, no allergic rhinitis Exam - Constitutional Vitals: Temp Pulse Resp BP Pulse Ox 98.1 F 57 L 16 121/85 97 02/22/18 12:21 02/22/18 12:21 02/22/18 12:21 02/22/18 12:21 02/22/18 12:21 General appearance: Present: no acute distress, well-nourished - EENT Eyes: Present: PERRL, EOM intact - Neck Neck: Present: supple, normal ROM - Respiratory Respiratory effort: normal Respiratory: negative: rales, rhonchi, wheezing - Cardiovascular Rhythm: regular Heart Sounds: Present: S1 & S2 - Extremities Extremities: no ischemia, No edema - Abdominal General gastrointestinal: Present: soft, non-tender, non-distended, normal bowel sounds - Integumentary Integumentary: Present: clear, warm - Musculoskeletal Musculoskeletal: strength equal bilaterally, generalized weakness - Psychiatric Psychiatric: appropriate mood/affect, cooperative - Neurologic Neurologic: CNII-XII intact, moves all extremities Results - Labs CBC & Chem 7: 02/22/18 04:57 02/22/18 07:52 Labs: Abnormal lab results 02/21/18 02/21/18 02/21/18 Range/Units 08:54 08:54 17:05 WBC (4.5-11.0) K/mm3 Hgb 6.9 L (10.1-14.3) gm/dl Hct 22.4 L (30.3-42.9) % MCH (28-32) pg RDW (13.2-15.2) % Plt Count (140-440) K/mm3 Lactate Dehydrogenase (91-180) units/L TSH 204.800 H (0.270-4.200) mlU/mL Free T4 (0.76-1.46) ng/dL Crossmatch See Detail 02/22/18 02/22/18 02/22/18 Range/Units 04:57 07:52 09:46 WBC 12.7 H (4.5-11.0) K/mm3 Hgb (10.1-14.3) gm/dl Hct (30.3-42.9) % MCH 27 L (28-32) pg RDW 17.5 H (13.2-15.2) % Plt Count 92 L (140-440) K/mm3 Lactate Dehydrogenase 481 H (91-180) units/L TSH 174.100 H (0.270-4.200) mlU/mL Free T4 0.13 L (0.76-1.46) ng/dL Crossmatch Assessment and Plan --Severe hypothyroidism; IV Synthroid 150 mg today, patient already took 75 mg. 100 mg of Synthroid daily from tomorrow And we will gradually increase the dose as needed, periodic checking of thyroid function tests Strongly advised to see copier operator as outpatient GENESIS upon discharge No endocrinology services available in the hospital --Non-compliance ; patient strongly advised, to comply with medications and follow with copier operator For further evaluation and management. Patient may be discharged on 100 mg of Synthroid which will be gradually increased by PMD or private copier operator Rest of the management per EDUCATIONAL ADMINISTRATION TEACHER Patient's baby needs to be evaluated for hypothyroidism by cardiothoracic icu rn Thank you for this consultation We will follow the patient along with you Plan of care discussed with the patient's nurse and the patient Called the attending physician [EDUCATIONAL ADMINISTRATION TEACHER] and left a message
[2018-02-22] MEDS ORDERED: BOOSTRIX IM ONE (14:46)
[2018-02-22] MEDS ORDERED: SYNTHROID IV ONE (15:00)
[2018-02-23] MEDS ORDERED: SYNTHROID IV SCH (06:00)
[2018-02-23] MEDS ORDERED: BOOSTRIX IM ONE (06:00)
--- NOTE | 2018-02-23 08:02 | Discharge Summary ---
Providers - Providers Date of Admission: 02/21/18 08:02 Date of discharge: 02/23/18 (desires d/c home) Attending physician: JAMAR SIGALA 02/22/18 06:23 Consult to Physician [CONS] Routine Comment: Consulting Provider: VILLA CLAY Physician Instructions: Reason For Exam: thyroid disorder Primary care physician: OCCUPATIONAL THERAPY DEPARTMENT CHAIR Hospitalization Reason for admission: Labor Condition: Good Pertinent studies: TSH 174.1, free T4 0.13, post transfusion H&H 10.7/32.3 Procedures: vaginal delivery Hospital course: uncomplicated vaginal delivery, course complicated by severe hypothyroidism Disposition: DC-01 TO HOME OR SELFCARE - Discharge Diagnoses (1) Chronic anemia Status: Acute (2) Spontaneous vaginal delivery Status: Acute (3) Severe hypothyroidism Status: Acute Core Measure Documentation - Palliative Care Palliative Care/ Comfort Measures: Not Applicable - Core Measures Any of the following diagnoses?: none Exam - Constitutional Vitals: Temp Pulse Resp BP Pulse Ox 98.1 F 54 L 18 117/84 97 02/23/18 01:38 02/23/18 01:38 02/23/18 01:38 02/23/18 01:38 02/23/18 01:38 General appearance: Present: no acute distress, well-nourished - EENT Eyes: Present: PERRL ENT: hearing intact, clear oral mucosa - Neck Neck: Present: supple, normal ROM - Respiratory Respiratory effort: normal Respiratory: bilateral: CTA - Cardiovascular Heart Sounds: Present: S1 & S2. Absent: rub, click - Extremities Extremities: pulses symmetrical, No edema Peripheral Pulses: within normal limits - Abdominal General gastrointestinal: Present: soft, non-tender, non-distended, normal bowel sounds Female genitourinary: Present: normal - Integumentary Integumentary: Present: clear, warm, dry - Musculoskeletal Musculoskeletal: gait normal, strength equal bilaterally - Psychiatric Psychiatric: appropriate mood/affect, intact judgment & insight - Neurologic Neurologic: CNII-XII intact, moves all extremities - Additional findings Additional findings: VSSAF, lochia scant, fundus firm @U, bottle feeding Plan Activity: no restrictions Diet: regular Follow up with: PRIMARY CAREMD [Primary Care Provider] - 7 Days STEFANIA MENARD MD [Staff Physician] - 03/23/18 (Congratulations! Please call [phone] to schedule your appointment in 4 weeks. You may also call your OBGYN Dr. Jones for a follow up appointment.It is important to schedule an appointment with your meat hanger for continued monitoring of your thyroid disease.) Prescriptions: Levothyroxine Sodium [Synthroid] 100 mcg PO DAILY #30 tablet
[2018-02-23 09:28] LABS: Free T4 (Free Thyroxine) 0.78 ng/dL (0.76-1.46)
[2018-02-23] MEDS: MOTRIN PO SCH (09:34)
[2018-02-23] MEDS: PRENATAL VITAMIN PO SCH (09:34)
[2018-02-23] MEDS: FEOSOL PO SCH (09:34)
[2018-02-23] MEDS: COLACE PO SCH (09:34)
--- NOTE | 2018-02-23 12:46 | Progress Note ---
Assessment and Plan Assessment and plan: --Severe hypothyroidism; continue 100 mics Synthroid daily Advised to see private fire sprinkler fitter GENESIS Moro baby needs to be seen by medical reimbursement specialist/vapor coater for evaluation of hypothyroid symptoms --Medical noncompliance; counseling done patient strongly advised to comply with medications,Follow-up visits Patient verbalized understanding Okay to discharge the patient Thank you for this consultation, I'll sign off History Interval history: Patient seen and examined medical records reviewed Feels slightly better no new complaints Being discharged home, on 100 mcg of Synthroid Vital signs reviewed Hospitalist Physical - Constitutional Vitals: Temp Pulse Resp BP Pulse Ox 97.7 F 63 20 113/77 97 02/23/18 08:50 02/23/18 08:50 02/23/18 08:50 02/23/18 08:50 02/23/18 01:38 General appearance: Present: no acute distress, well-nourished - EENT Eyes: Present: PERRL, EOM intact - Neck Neck: Present: supple, normal ROM - Respiratory Respiratory effort: normal Respiratory: negative: rales, rhonchi, wheezing - Cardiovascular Rhythm: regular Heart Sounds: Present: S1 & S2 - Extremities Extremities: no ischemia, No edema - Abdominal General gastrointestinal: soft, non-tender, non-distended, normal bowel sounds - Integumentary Integumentary: Present: clear, warm - Psychiatric Psychiatric: appropriate mood/affect, cooperative - Neurologic Neurologic: CNII-XII intact, moves all extremities Results - Labs CBC & Chem 7: 02/22/18 04:57 02/22/18 07:52 Labs: Laboratory Last Values WBC 12.7 K/mm3 (4.5-11.0) H 02/22/18 04:57 RBC 3.89 M/mm3 (3.65-5.03) 02/22/18 04:57 Hgb 10.7 gm/dl (10.1-14.3) D 02/22/18 04:57 Hct 32.3 % (30.3-42.9) D 02/22/18 04:57 MCV 83 fl (79-97) 02/22/18 04:57 MCH 27 pg (28-32) L 02/22/18 04:57 MCHC 33 % (30-34) 02/22/18 04:57 RDW 17.5 % (13.2-15.2) H 02/22/18 04:57 Plt Count 92 K/mm3 (140-440) L 02/22/18 04:57 Add Manual Diff Complete 02/21/18 08:54 Total Counted 100 02/21/18 08:54 Seg Neuts % (Manual) 63.0 % (40.0-70.0) 02/21/18 08:54 Band Neutrophils % 0 % 02/21/18 08:54 Lymphocytes % (Manual) 34.0 % (13.4-35.0) 02/21/18 08:54 Reactive Lymphs % (Man) 0 % 02/21/18 08:54 Monocytes % (Manual) 2.0 % (0.0-7.3) 02/21/18 08:54 Eosinophils % (Manual) 1.0 % (0.0-4.3) 02/21/18 08:54 Basophils % (Manual) 0 % (0.0-1.8) 02/21/18 08:54 Metamyelocytes % 0 % 02/21/18 08:54 Myelocytes % 0 % 02/21/18 08:54 Promyelocytes % 0 % 02/21/18 08:54 Blast Cells % 0 % 02/21/18 08:54 Nucleated RBC % 1.0 % (0.0-0.9) H 02/21/18 08:54 Seg Neutrophils # Man 4.6 K/mm3 (1.8-7.7) 02/21/18 08:54 Band Neutrophils # 0.0 K/mm3 02/21/18 08:54 Lymphocytes # (Manual) 2.5 K/mm3 (1.2-5.4) 02/21/18 08:54 Abs React Lymphs (Man) 0.0 K/mm3 02/21/18 08:54 Monocytes # (Manual) 0.1 K/mm3 (0.0-0.8) 02/21/18 08:54 Eosinophils # (Manual) 0.1 K/mm3 (0.0-0.4) 02/21/18 08:54 Basophils # (Manual) 0.0 K/mm3 (0.0-0.1) 02/21/18 08:54 Metamyelocytes # 0.0 K/mm3 02/21/18 08:54 Myelocytes # 0.0 K/mm3 02/21/18 08:54 Promyelocytes # 0.0 K/mm3 02/21/18 08:54 Blast Cells # 0.0 K/mm3 02/21/18 08:54 WBC Morphology Not Reportable 02/21/18 08:54 Hypersegmented Neuts Not Reportable 02/21/18 08:54 Hyposegmented Neuts Not Reportable 02/21/18 08:54 Hypogranular Neuts Not Reportable 02/21/18 08:54 Smudge Cells Not Reportable 02/21/18 08:54 Toxic Granulation Not Reportable 02/21/18 08:54 Toxic Vacuolation Not Reportable 02/21/18 08:54 Dohle Bodies Not Reportable 02/21/18 08:54 Pelger-Huet Anomaly Not Reportable 02/21/18 08:54 Roberta Rods Not Reportable 02/21/18 08:54 Platelet Estimate Cons 02/21/18 08:54 Clumped Platelets Not Reportable 02/21/18 08:54 Plt Clumps, EDTA Not Reportable 02/21/18 08:54 Large Platelets Not Reportable 02/21/18 08:54 Giant Platelets Not Reportable 02/21/18 08:54 Platelet Satelliting Not Reportable 02/21/18 08:54 Plt Morphology Comment Not Reportable 02/21/18 08:54 RBC Morphology Not Reportable 02/21/18 08:54 Dimorphic RBCs Not Reportable 02/21/18 08:54 Polychromasia Not Reportable 02/21/18 08:54 Hypochromasia Not Reportable 02/21/18 08:54 Poikilocytosis Not Reportable 02/21/18 08:54 Anisocytosis 1+ 02/21/18 08:54 Microcytosis Not Reportable 02/21/18 08:54 Macrocytosis Not Reportable 02/21/18 08:54 Spherocytes Not Reportable 02/21/18 08:54 Pappenheimer Bodies Not Reportable 02/21/18 08:54 Sickle Cells Not Reportable 02/21/18 08:54 Target Cells Not Reportable 02/21/18 08:54 Tear Drop Cells Not Reportable 02/21/18 08:54 Ovalocytes Not Reportable 02/21/18 08:54 Helmet Cells Not Reportable 02/21/18 08:54 Cantu-Dequincy Bodies Not Reportable 02/21/18 08:54 [employer] Rings Not Reportable 02/21/18 08:54 Edinson Cells Not Reportable 02/21/18 08:54 Bite Cells Not Reportable 02/21/18 08:54 Crenated Cell Not Reportable 02/21/18 08:54 Elliptocytes Not Reportable 02/21/18 08:54 Acanthocytes (Spur) Not Reportable 02/21/18 08:54 Rouleaux Not Reportable 02/21/18 08:54 Hemoglobin C Crystals Not Reportable 02/21/18 08:54 Schistocytes Not Reportable 02/21/18 08:54 Malaria parasites Not Reportable 02/21/18 08:54 Sickle Cell Screen Negative (Negative) 02/21/18 08:54 Shravan Bodies Not Reportable 02/21/18 08:54 Hem Pathologist Commnt No 02/21/18 08:54 Creatinine 0.7 mg/dL (0.7-1.2) 02/22/18 07:52 Estimated GFR > 60 ml/min 02/22/18 07:52 Uric Acid 5.9 mg/dL (3.5-7.6) 02/22/18 07:52 AST 33 units/L (5-40) 02/22/18 07:52 ALT 7 units/L (7-56) 02/22/18 07:52 Lactate Dehydrogenase 481 units/L (91-180) H 02/22/18 07:52 TSH 194.600 mlU/mL (0.270-4.200) H 02/23/18 08:32 Free T4 0.78 ng/dL (0.76-1.46) 02/23/18 08:32 Urine Color Yellow (Yellow) 02/21/18 08:54 Urine Turbidity Clear (Clear) 02/21/18 08:54 Urine pH 6.0 (5.0-7.0) 02/21/18 08:54 Ur Specific [place] 1.009 (1.003-1.030) 02/21/18 08:54 Urine Protein 100 mg/dl mg/dL (Negative) 02/21/18 08:54 Urine Glucose (UA) Neg mg/dL (Negative) 02/21/18 08:54 Urine Ketones Neg mg/dL (Negative) 02/21/18 08:54 Urine Blood Neg (Negative) 02/21/18 08:54 Urine Nitrite Neg (Negative) 02/21/18 08:54 Urine Bilirubin Neg (Negative) 02/21/18 08:54 Urine Urobilinogen < 2.0 mg/dL (<2.0) 02/21/18 08:54 Ur Leukocyte Esterase Neg (Negative) 02/21/18 08:54 Urine WBC (Auto) 4.0 /HPF (0.0-6.0) 02/21/18 08:54 Urine RBC (Auto) 3.0 /HPF (0.0-6.0) 02/21/18 08:54 U Epithel Cells (Auto) 1.0 /HPF (0-13.0) 02/21/18 08:54 Hyaline Casts 1 /LPF 02/21/18 08:54 Urine Opiates Screen Presumptive negative 02/21/18 08:54 Urine Methadone Screen Presumptive negative 02/21/18 08:54 Ur Barbiturates Screen Presumptive negative 02/21/18 08:54 Ur Phencyclidine Scrn Presumptive negative 02/21/18 08:54 Ur Amphetamines Screen Presumptive negative 02/21/18 08:54 U Benzodiazepines Scrn Presumptive negative 02/21/18 08:54 Urine Cocaine Screen Presumptive negative 02/21/18 08:54 U Marijuana (THC) Screen Presumptive negative 02/21/18 08:54 Drugs of Abuse Note Disclamer 02/21/18 08:54 RPR Nonreactive (Nonreactive) 02/21/18 08:54 Hep Bs Antigen Non-reactive (Negative) 02/21/18 08:54 Hepatitis C Antibody Non-reactive (NonReactive) 02/21/18 08:54 HIV 1&2 Antibody Rapid Non react (Non React) 02/21/18 08:54 HIV P24 Antigen Non react (Non React) 02/21/18 08:54 Rubella IgG Antibody Immune (Immune) 02/21/18 08:54 Blood Type O POSITIVE 02/21/18 08:54 Antibody Screen Negative 02/21/18 08:54 Crossmatch See Detail 02/21/18 08:54
[2018-02-23 15:51] VITALS: BP 130/94
== END 2018-02-23 14:15 | disposition home or self-care (01) | DRG 775 ==
LOC: TRG 07:32 → LD 08:02 → OB 16:44
PROVIDERS: ADMIT Obstetrics & Gynecology; ATTEND Obstetrics & Gynecology
PROC: 10E0XZZ Delivery of Products of Conception, External Approach (ICD-10-PCS; principal; 2018-02-21)
PROC: 0KQM0ZZ Repair Perineum Muscle, Open Approach (ICD-10-PCS; 2018-02-21)
PROC: 0W8NXZZ Division of Female Perineum, External Approach (ICD-10-PCS; 2018-02-21)
PROC: 3E0R3BZ Introduction of Anesthetic Agent into Spinal Canal, Percutaneous Approach (ICD-10-PCS; 2018-02-21)
PROC: 00HU33Z Insertion of Infusion Device into Spinal Canal, Percutaneous Approach (ICD-10-PCS; 2018-02-21)
PROC: 30233N1 Transfusion of Nonautologous Red Blood Cells into Peripheral Vein, Percutaneous Approach (ICD-10-PCS; 2018-02-21)
DX: O99.02 Anemia complicating childbirth (principal); O99.284 Endocrine, nutritional and metabolic diseases complicating childbirth; E03.9 Hypothyroidism, unspecified; D64.9 Anemia, unspecified; O69.81X0 Labor and delivery complicated by cord around neck, without compression, not applicable or unspecified; O71.82 Other specified trauma to perineum and vulva; O77.0 Labor and delivery complicated by meconium in amniotic fluid; Z3A.39 39 weeks gestation of pregnancy; Z37.0 Single live birth; Z91.14 Patient's other noncompliance with medication regimen
CPT/HCPCS: 36415; 80307; 81001; 82565; 83615; 84439; 84443; 84450; 84460; 84481; 84550; 85007; 85014; 85018; 85025; 85027; 85660; 86592; 86706; 86762; 86803; 86850; 86900; 86901; 86920; 87806; 88307; 90715; 99211; G0463; J0290; J2210; J2310; J2590; J3010; J7040; J7120; P9016

== ENCOUNTER 2019-10-31 23:54 | Inpatient (IN) | payer MEDICAID ==
[2019-11-01] MEDS ORDERED: AMPICILLIN/NS 2 GM/100 ML 2 GM/100 ML BAG IV ONE ×2 (00:20)
[2019-11-01] MEDS ORDERED: OXYTOCIN 20 UNIT/1000ML DRIP 20,000 MILLIUNITS/1,000 ML BAG IV ONE (00:20)
[2019-11-01] MEDS ORDERED: LIDOCAINE (2%) 20 MG/1 ML VIAL 20 ML MDV INFILTRATI ONE (00:20)
[2019-11-01] MEDS ORDERED: MINERAL OIL 30 ML ORAL LIQD PO PRN (00:20)
[2019-11-01] MEDS ORDERED: LACTATED RINGERS 1,000 ML ONE (00:20)
[2019-11-01] MEDS ORDERED: TERBUTALINE 1 MG/1 ML INJ SUB-Q PRN (00:20)
[2019-11-01] MEDS ORDERED: ePHEDrine SULFATE 50 MG/1 ML INJ IV PRN (00:20)
[2019-11-01] MEDS ORDERED: TERBUTALINE 1 MG/1 ML INJ IVP PRN (00:20)
[2019-11-01] MEDS ORDERED: LACTATED RINGERS 1,000 ML IV SCH (01:00)
[2019-11-01] MEDS ORDERED: OXYTOCIN 20 UNIT/1000ML DRIP 20 UNITS/1,000 ML BAG IV SCH (01:00)
[2019-11-01 01:10] LABS: Hematocrit 24.9 % (30.3-42.9); Hemoglobin 8.1 gm/dl (10.1-14.3); Mean Corpuscular HGB Conc 33 % (30-34); Mean Corpuscular Volume 86 fl (79-97); Platelet Count 154 K/mm3 (140-440); Red Blood Count 2.91 M/mm3 (3.65-5.03); Red Cell Distribution Width 16.1 % (13.2-15.2)
[2019-11-01] MEDS ORDERED: OXYTOCIN DRIP 30 UNITS/500 ML BAG IV SCH (01:45)
[2019-11-01] MEDS ORDERED: OXYTOCIN DRIP 30,000 MILLIUNITS/500 ML BAG IV ONE (01:52)
--- NOTE | 2019-11-01 01:52 | History and Physical Report ---
History of Present Illness Date of examination: 11/01/19 Date of admission: 11/01/19 00:10 Chief complaint: active labor History of present illness: 24yo at 39+3/7 weeks by LNMP consistent with second trimester US presents in active labor MAINOR 11/05/19 PMHx: hypothyroid: on levothyroxine 75mg daily, hx of severe anemia SP blood transfusion with last delivery GBS negative O/pos Hb 7.6 PTL 213 RPR NR Rubella immune HbsAg neg trich neg GC negative Chlamydia negative pap NILM 03/15/19 QUAD negative GCT 115 OB HX: 2013: female weight 2722gms 2018: male weight Past History Past Medical History: no pertinent history Past Surgical History: no surgical history Social history: no significant social history - Obstetrical History : 3 Medications and Allergies Allergies Allergy/AdvReac Type Severity Reaction Status Date / Time No Known Allergies Allergy Verified 11/01/19 00:20 Home Medications Medication Instructions Recorded Confirmed Last Taken Type Levothyroxine Sodium [Synthroid] 75 mcg PO DAILY 02/21/18 02/21/18 02/20/18 07:00 History 1 Levothyroxine Sodium [Synthroid] 100 mcg PO DAILY #30 tablet 02/22/18 Unknown Rx Active Meds: Active Medications Ephedrine Sulfate (Ephedrine Sulfate) 10 mg IV Q2M PRN PRN Reason: Hypotension Oxytocin/Sodium Chloride (Pitocin/Ns 20 Unit/1000ml Drip) 20 units in 1,000 mls @ 125 mls/hr IV DIRECT [facility]RISTA Last Admin: 11/01/19 00:57 Dose: 125 mls/hr Documented by: Lactated Ringer's (Lactated Ringers) 1,000 mls @ 125 mls/hr IV DIRECT CHRISTA Last Admin: 11/01/19 00:56 Dose: 125 mls/hr Documented by: Ampicillin Sodium (Ampicillin/Ns 1 Gm/50 Ml) 1 gm in 50 mls @ 100 mls/hr IV Q4HR CHRISTA; Protocol Mineral Oil (Mineral Oil) 30 ml PO QHS PRN PRN Reason: Constipation Terbutaline Sulfate (Brethine) 0.25 mg SUB-Q ONCE PRN PRN Reason: Hyperstimulation/Hypertonicity Terbutaline Sulfate (Brethine) 0.25 mg IVP ONCE PRN PRN Reason: Hyperstimulation/Hypertonicity Review of Systems All systems: negative - Vital Signs Vital signs: Vital Signs Temp Pulse Resp BP Pulse Ox 98.3 F 87 18 133/93 97 11/01/19 01:22 11/01/19 01:22 11/01/19 01:22 11/01/19 01:22 11/01/19 01:22 Temp Pulse Resp BP Pulse Ox 98.3 F 75 18 133/93 98 11/01/19 01:22 11/01/19 01:33 11/01/19 01:22 11/01/19 01:23 11/01/19 01:33 - Physical Exam Breasts: Positive: deferred Cardiovascular: Regular rate Lungs: Positive: Clear to auscultation Abdomen: Positive: normal appearance Genitourinary (Female): Positive: normal external genitalia - Obstetrical FHR: category 1 Uterine Contraction Monitor Mode: External Uterine Contraction Pattern: Regular Results Result Diagrams: 11/01/19 00:00 Abnormal lab results 11/01/19 Range/Units 00:00 RBC 2.91 L (3.65-5.03) M/mm3 Hgb 8.1 L (10.1-14.3) gm/dl Hct 24.9 L (30.3-42.9) % RDW 16.1 H (13.2-15.2) % All other labs normal. Assessment and Plan active labor at term Plan: AOL with oxytocin second to maternal exhaustion and mild contractions with no cervical change since admission GBS negative Anemia: 2 units on hold PRBC's Asa BAER
[2019-11-01] MEDS ORDERED: SODIUM CHLORIDE 0.9% 500 ML 500 ML IV ONE (01:55)
[2019-11-01] MEDS ORDERED: diphenhydrAMINE 50 MG/ML VIAL IV ONE ×2 (02:00→02:05)
--- NOTE | 2019-11-01 03:09 | Procedure Note ---
OB Delivery Note - Delivery Date of Delivery: 11/01/19 Surgeon: EDGAR KAY Plate Painter: ANGELA CONTRERAS Estimated blood loss: 500cc - Vaginal Delivery position: OA Delivery induction: none Delivery augmentation: pitocin Delivery monitor: external FHT Route of delivery: Delivery placenta: spontaneous, uterine exploration Episiotomy: none Delivery laceration: 1st degree Anesthesia: none Delivery comments: Called to room for delivery. VE 10/100%/+1. Pushing begin. of viable female in OA position. Shoulders delivered spontaneously, baby direct to mater nal abdomen for skin to skin contact. 8/9. Delayed cord clamping then cord was clamped times 2 and cut. Placenta delivered with ease. 3vc and intact. FF@ U1 with fundal massage and IV Pitocin. Exploration of tears revealed a non bleeding 1st degree vag tear. Mom and baby stable. EBL 500cc. - Infant A at 1 minute: 8 at 5 minutes: 9 Infant Gender: Female (wt 3315 gms)
[2019-11-01] MEDS ORDERED: diphenhydrAMINE 25 MG CAP PO PRN (03:24)
[2019-11-01] MEDS ORDERED: WITCH HAZEL/ GLYCERIN PAD TP PRN (03:24)
[2019-11-01] MEDS ORDERED: MAGNESIUM HYDROXIDE (MOM) ORAL LIQD UDC PO PRN (03:24)
[2019-11-01] MEDS ORDERED: PROMETHAZINE 25 MG TAB PO PRN (03:24)
[2019-11-01] MEDS ORDERED: ACETAMINOPHEN 325 MG TAB PO PRN (03:24)
[2019-11-01] MEDS ORDERED: LANOLIN/ZINC/DIMETHICONE (LANSINOH) 7 GM TP PRN (03:24)
[2019-11-01] MEDS ORDERED: PROMETHAZINE 25 MG RECT SUPP PR PRN (03:24)
[2019-11-01] MEDS ORDERED: ONDANSETRON 4 MG/2 ML INJ IV PRN (03:24)
[2019-11-01 03:44] LABS: Hepatitis C Virus Antibody Non-Reactive (NonReactive)
[2019-11-01] MEDS: IBUPROFEN 600 MG TAB PO SCH ×4 (04:02→23:46)
[2019-11-01] MEDS ORDERED: AMPICILLIN/NS 1 GM/50 ML 1 GM/50 ML BAG IV SCH (04:20)
[2019-11-01] MEDS ORDERED: LEVOTHYROXINE 150 MCG TAB PO SCH (06:00)
[2019-11-01 15:27] LABS: Hematocrit 18.1 % (30.3-42.9); Hemoglobin 5.7 gm/dl (10.1-14.3)
[2019-11-01] MEDS ORDERED: SODIUM CHLORIDE 0.9% 250ML 250 ML ONE (16:45)
[2019-11-01] MEDS ORDERED: SODIUM CHLORIDE 0.9% 100 ML IVPB IV SCH (18:00)
[2019-11-01] MEDS: DOCUSATE SODIUM 100 MG CAP PO SCH (23:46)
[2019-11-01] MEDS: FERROUS SULFATE 325 MG TAB PO SCH (23:48)
[2019-11-02] MEDS ORDERED: SODIUM CHLORIDE 0.9% 250ML 250 ML IV ONE (00:37)
[2019-11-02] MEDS: IBUPROFEN 600 MG TAB PO SCH (06:02)
[2019-11-02 08:17] LABS: Hematocrit 28.8 % (30.3-42.9); Hemoglobin 9.7 gm/dl (10.1-14.3)
[2019-11-02 09:17] VITALS: BP 116/81
--- NOTE | 2019-11-02 09:56 | Progress Note ---
Assessment and Plan - Patient Problems (1) Status post normal vaginal delivery Current Visit: Yes Status: Acute Plan to address problem: D/C home today if baby ok for d/c by Peds team F/U at office in 6 wks for routine PP visit (2) Chronic anemia Current Visit: No Status: Acute Plan to address problem: Asymptomatic Continue daily oral iron supplementation as directed Increase iron rich foods into diet (3) Severe hypothyroidism Current Visit: No Status: Acute Plan to address problem: Continue synthroid as directed F/U care with machine chocolate molder as instructed Subjective - Subjective Date of service: 11/02/19 Principal diagnosis: S/P ; PPD#1 Interval history: See admission H & P; OB delivery summary and PP progress notes Patient reports: appetite normal, voiding normally, pain well controlled, flatus, ambulating normally, other (Request to go home today, advised that if baby is ok for d/c, she can go too) : doing well Objective - Vital Signs Latest vital signs: Vital Signs Temp Pulse Resp BP BP Pulse Ox 11/02/19 07:58 98.7 F 60 18 116/81 96 11/02/19 00:55 98.7 F 64 18 125/86 97 11/02/19 00:25 98.1 F 63 20 134/93 97 11/02/19 00:00 98.0 F 65 18 134/93 11/01/19 23:55 98.0 F 62 18 135/87 98 11/01/19 23:25 98.9 F 64 18 129/91 11/01/19 22:55 98.6 F 68 20 134/92 97 11/01/19 22:25 99.0 F 67 18 123/85 98 11/01/19 22:10 98.7 F 67 18 123/89 98 11/01/19 21:28 98.2 F 73 18 119/88 98 11/01/19 21:15 98.6 F 84 18 119/88 98 11/01/19 20:45 98.7 F 80 18 118/85 11/01/19 20:15 98.6 F 71 18 124/88 98 11/01/19 19:45 98.8 F 75 18 119/85 97 11/01/19 19:25 98.7 F 72 18 117/86 98 11/01/19 18:49 69 18 113/82 98 11/01/19 18:45 98.8 F 74 18 119/85 11/01/19 18:15 99.6 F 75 18 117/80 11/01/19 17:53 98.3 F 77 18 114/84 11/01/19 17:10 78 18 97 11/01/19 16:10 98.4 F 76 18 114/79 Intake and Output 11/01/19 11/02/19 11/02/19 23:59 07:59 15:59 Intake Total 240 240 240 Output Total 600 Balance -360 240 240 Intake: Oral 240 240 240 Blood Product 0 0 Leukoreduced Red Blood 0 0 Cells Unit [id number] Leukoreduced Red Blood 0 Cells Unit [id number] Output: Urine 600 Void 600 Other: Total, Intake Amount 240 240 240 Total, Output Amount 600 # Voids Void 1 1 1 - Exam Breasts: Present: normal Cardiovascular: Present: Regular rate Lungs: Present: Normal air movement Abdomen: Present: soft Uterus: Present: firm, fundal height below umbilicus (U-2) Extremities: Present: normal Deep Tendon Reflex Grade: Normal +2 Incision: Present: other (1st degree laceration, healing as expected) - Labs Labs: Abnormal lab results 11/01/19 11/01/19 11/02/19 Range/Units 00:00 14:53 07:42 Hgb 5.7 L* 9.7 L D (10.1-14.3) gm/dl Hct 18.1 L* D 28.8 L D (30.3-42.9) % Crossmatch See Detail
--- NOTE | 2019-11-02 10:02 | Discharge Summary ---
Providers - Providers Date of Admission: 11/01/19 00:10 Date of discharge: 11/02/19 (1400) Attending physician: ANGELA CONTRERAS MD Primary care physician: ANGELA CONTRERAS MD Hospitalization Reason for admission: active labor, IUP at term Delivery: Episiotomy: none Laceration: 1st degree (healing as expected) Other procedures: none complications: none Discharge diagnosis: IUP at term delivered, other (Anemia; Hypothyroidism) Condition at discharge: Stable Disposition: RI-01 TO HOME OR SELFCARE - Discharge Diagnoses (1) Status post normal vaginal delivery Status: Acute (2) Chronic anemia Status: Acute (3) Severe hypothyroidism Status: Acute Plan - Provider Discharge Summary Activity: routine, no sex for 6 weeks, no heavy lifting 4 weeks, no strenuous exercise Diet: other (Iron rich diet) Instructions: routine Additional instructions: [] Smoking cessation referral if applicable(refer to patient education folder for contact #) [] Refer to [facility] Booklet Call your doctor immediately for: * Fever > 100.5 * Heavy vaginal bleeding ( >1 pad per hour) * Severe persistent headache * Shortness of breath * Reddened, hot, painful area to leg or breast * Drainage or odor from incision. * Keep laceration site clean and dry at all times and follow doctor's instructions regarding bathing/showering * Continue daily iron supplementation as directed with OJ, for better absorption - Follow up plan Follow up: ANGELA CONTRERAS MD [Primary Care Provider] - 6 Weeks
[2019-11-02] MEDS: FERROUS SULFATE 325 MG TAB PO SCH ×2 (10:16→16:07)
[2019-11-02] MEDS: DOCUSATE SODIUM 100 MG CAP PO SCH (10:16)
== END 2019-11-02 18:52 | disposition home or self-care (01) | DRG 775 ==
LOC: TRG 23:54 → LD 11-01 00:10 → OB 11-01 04:50
PROVIDERS: ADMIT Obstetrics & Gynecology; ATTEND Obstetrics & Gynecology
PROC: 10E0XZZ Delivery of Products of Conception, External Approach (ICD-10-PCS; principal; 2019-11-01)
PROC: 30233N1 Transfusion of Nonautologous Red Blood Cells into Peripheral Vein, Percutaneous Approach (ICD-10-PCS; 2019-11-01)
PROC: 0HQ9XZZ Repair Perineum Skin, External Approach (ICD-10-PCS; 2019-11-01)
DX: O99.02 Anemia complicating childbirth (principal); D64.9 Anemia, unspecified; O99.284 Endocrine, nutritional and metabolic diseases complicating childbirth; E03.9 Hypothyroidism, unspecified; Z3A.39 39 weeks gestation of pregnancy; Z37.0 Single live birth; O70.0 First degree perineal laceration during delivery
CPT/HCPCS: 36415; 85014; 85018; 85027; 86706; 86762; 86803; 86850; 86900; 86901; 86920; 87806; G0378; J0290; J1200; J2590; J7050; J7120; P9016

== ENCOUNTER 2020-07-31 23:10 | Emergency (ER) | payer MEDICAID ==
[2020-08-01] MEDS ORDERED: KETOROLAC 30 MG/1 ML INJ IM ONE (07:30)
--- NOTE | 2020-08-01 07:36 | Emergency Department Report ---
ED Back Pain/Injury HPI - General Chief Complaint: Back Pain/Injury Stated Complaint: RT LOWER BACK PAIN Time Seen by Provider: 08/01/20 07:17 Source: patient Limitations: No Limitations - History of Present Illness Initial Comments: Patient is a 25-year-old female presents emergency room with complaints of right lower back pain that began last night. She denies any fall or injury. She denies any heavy lifting. She states that she has associated urinary frequency and urinary urgency. She denies any dysuria, nausea, vomiting, diarrhea, fever, abdominal pain. She states that she is currently on her menstrual cycle. Has a past medical history of hypothyroidism. She denies any allergies to medications. - Related Data Home Medications Medication Instructions Recorded Confirmed Last Taken Levothyroxine [Synthroid] 150 mcg PO QAM 11/01/19 11/01/19 Unknown Previous Rx's Medication Instructions Recorded Last Taken Type Ferrous Sulfate [Feosol 325 MG tab] 325 mg PO TID tablet 11/02/19 Unknown Rx Naproxen [EC-Naprosyn] 375 mg PO BID PRN #14 tablet.dr 08/01/20 Unknown Rx Ondansetron [Zofran Odt] 4 mg PO Q8HR PRN #7 tab.rapdis 08/01/20 Unknown Rx Phenazopyridine [Pyridium] 100 mg PO TID #10 tab 08/01/20 Unknown Rx cephALEXin [Keflex] 500 mg PO BID 10 Days #20 cap 08/01/20 Unknown Rx Allergies Allergy/AdvReac Type Severity Reaction Status Date / Time No Known Allergies Allergy Verified 11/01/19 00:20 ED Review of Systems ROS: Stated complaint: RT LOWER BACK PAIN Other details as noted in HPI Comment: All other systems reviewed and negative ED Past Medical Hx - Past Medical History Previous Medical History?: Yes Hx Hypertension: No Hx Congestive Heart Failure: No Hx Diabetes: No Hx Deep Vein Thrombosis: No Hx Renal Disease: No Hx Sickle Cell Disease: No Hx Seizures: No Hx Asthma: No Hx COPD: No Hx HIV: No Additional medical history: Hypothyroid - Surgical History Past Surgical History?: No - Social History Smoking Status: Never Smoker Substance Use Type: None - Medications Home Medications: Home Medications Medication Instructions Recorded Confirmed Last Taken Type Levothyroxine [Synthroid] 150 mcg PO QAM 11/01/19 11/01/19 Unknown History Ferrous Sulfate [Feosol 325 MG tab] 325 mg PO TID tablet 11/02/19 Unknown Rx Naproxen [EC-Naprosyn] 375 mg PO BID PRN #14 tablet.dr 08/01/20 Unknown Rx Ondansetron [Zofran Odt] 4 mg PO Q8HR PRN #7 tab.rapdis 08/01/20 Unknown Rx Phenazopyridine [Pyridium] 100 mg PO TID #10 tab 08/01/20 Unknown Rx cephALEXin [Keflex] 500 mg PO BID 10 Days #20 cap 08/01/20 Unknown Rx ED Physical Exam - General Limitations: No Limitations General appearance: alert, in no apparent distress - Head Head exam: Present: atraumatic, normocephalic - Eye Eye exam: Present: normal appearance - ENT ENT exam: Present: mucous membranes moist - Neck Neck exam: Present: normal inspection, full ROM. Absent: tenderness - Respiratory Respiratory exam: Present: normal lung sounds bilaterally. Absent: respiratory distress, wheezes, rales, rhonchi, stridor, chest wall tenderness, accessory muscle use, decreased breath sounds, prolonged expiratory - Cardiovascular Cardiovascular Exam: Present: regular rate, normal rhythm, normal heart sounds. Absent: systolic murmur, diastolic murmur, rubs, gallop - GI/Abdominal GI/Abdominal exam: Present: soft, normal bowel sounds. Absent: distended, tenderness, guarding, rebound, rigid - Back Exam Back exam: Present: normal inspection, full ROM, CVA tenderness (R), paraspinal tenderness (mild right sided lumbar paraspinal muscular ttp, no midline C-spine, T-spine or L-spine ttp, no step offs, no deformities). Absent: CVA tenderness (L), vertebral tenderness - Neurological Exam Neurological exam: Present: alert, oriented X3 - Psychiatric Psychiatric exam: Present: normal affect, normal mood - Skin Skin exam: Present: warm, dry, intact ED Course Vital Signs 07/31/20 08/01/20 08/01/20 23:42 07:52 08:38 Temperature 99.1 F 98.9 F Pulse Rate 109 H 101 H Respiratory 18 20 18 Rate Blood Pressure 93/63 Blood Pressure 96/62 [Left] O2 Sat by Pulse 96 97 Oximetry ED Medical Decision Making - Lab Data Result diagrams: 08/01/20 07:31 08/01/20 07:31 Lab Results 08/01/20 08/01/20 08/01/20 Range/Units 07:31 07:31 Unknown WBC 14.5 H (4.5-11.0) K/mm3 RBC 2.85 L (3.65-5.03) M/mm3 Hgb 9.1 L (10.1-14.3) gm/dl Hct 27.1 L (30.3-42.9) % MCV 95 (79-97) fl MCH 32 (28-32) pg MCHC 34 (30-34) % RDW 13.1 L (13.2-15.2) % Plt Count 242 (140-440) K/mm3 Lymph % (Auto) 6.6 L (13.4-35.0) % [place] % (Auto) 4.2 (0.0-7.3) % Eos % (Auto) 0.1 (0.0-4.3) % Baso % (Auto) 0.2 (0.0-1.8) % Lymph # (Auto) 0.9 L (1.2-5.4) K/mm3 [place] # (Auto) 0.6 (0.0-0.8) K/mm3 Eos # (Auto) 0.0 (0.0-0.4) K/mm3 Baso # (Auto) 0.0 (0.0-0.1) K/mm3 Seg Neutrophils % 88.9 H (40.0-70.0) % Seg Neutrophils # 12.9 H (1.8-7.7) K/mm3 Sodium 139 (137-145) mmol/L Potassium 4.7 (3.6-5.0) mmol/L Chloride 101.1 (98-107) mmol/L Carbon Dioxide 27 (22-30) mmol/L Anion Gap 16 mmol/L BUN 13 (7-17) mg/dL Creatinine 1.1 (0.6-1.2) mg/dL Estimated GFR 60 ml/min BUN/Creatinine Ratio 12 % Glucose 122 H (65-100) mg/dL Calcium 9.5 (8.4-10.2) mg/dL Urine Color Yellow (Yellow) Urine Turbidity Cloudy (Clear) Urine pH 5.0 (5.0-7.0) Ur Specific Sunspot 1.012 (1.003-1.030) Urine Protein 100 mg/dl (Negative) mg/dL Urine Glucose (UA) Neg (Negative) mg/dL Urine Ketones Neg (Negative) mg/dL Urine Blood Mod (Negative) Urine Nitrite Pos (Negative) Urine Bilirubin Neg (Negative) Urine Urobilinogen < 2.0 (<2.0) mg/dL Ur Leukocyte Esterase Lg (Negative) Urine WBC (Auto) > 182.0 H (0.0-6.0) /HPF Urine RBC (Auto) 24.0 (0.0-6.0) /HPF U Epithel Cells (Auto) 4.0 (0-13.0) /HPF Urine Bacteria (Auto) 2+ (Negative) /HPF Urine WBC Clumps 3+ /HPF Urine Mucus 1+ /HPF Urine HCG, Qual Negative (Negative) Vital Signs 07/31/20 08/01/20 08/01/20 23:42 07:52 08:38 Temperature 99.1 F 98.9 F Pulse Rate 109 H 101 H Respiratory 18 20 18 Rate Blood Pressure 93/63 Blood Pressure 96/62 [Left] O2 Sat by Pulse 96 97 Oximetry - Medical Decision Making Patient is a 25-year-old female presents emergency room with complaints of right lower back pain that began last night. She denies any fall or injury. She denies any heavy lifting. She states that she has associated urinary frequency and urinary urgency. She denies any dysuria, nausea, vomiting, diarrhea, fever, abdominal pain. She states that she is currently on her menstrual cycle. Has a past medical history of hypothyroidism. She denies any allergies to medi cations. Initial vitals with mild tachycardia which improved upon repeat. On exam patient has right CVA tenderness and mild right sided lumbar paraspinal muscular ttp, no midline C-spine, T-spine or L-spine ttp, no step offs, no deformities, no focal neuro deficits. Labs with white blood cell count of 14.5, otherwise stable. UA shows evidence of significant UTI. Urine is negative. Patient given Toradol IM and ceftriaxone IM and symptoms improved and patient was feeling much better. Symptoms could be related to pyelonephritis, will cover patient for pyelonephritis. She is tolerating p.o. intake, no fever, she is an outpatient candidate for antibiotic treatment for pyelonephritis. Discussed very strict return precautions with patient. Patient given prescription for Keflex, Zofran, naproxen, Pyridium. Advised patient Please take medication as prescribed. Please take antibiotics to completion. medication may turn your urine orange this is normal. Increase your water intake over the next several days. Follow-up with your primary care doctor. Please have your urine retested by her primary care physician for clearance of bacteria. Return to emergency room immediately for any new or worsening symptoms including but not limited to worsening pain, fever, vomiting, unable to tolerate by mouth intake, etc. - Differential Diagnosis Pyelonephritis, UTI, nephrolithiasis, muscle strain, MARCELLO, DDD, bulging disc Critical care attestation.: If time is entered above; I have spent that time in minutes in the direct care of this critically ill patient, excluding procedure time. ED Disposition Clinical Impression: Flank pain UTI (urinary tract infection) Qualifiers: Urinary tract infection type: acute cystitis Hematuria presence: with hematuria Qualified Code(s): N30.01 - Acute cystitis with hematuria Leukocytosis Qualifiers: Leukocytosis type: unspecified Qualified Code(s): D72.829 - Elevated white blood cell count, unspecified Disposition: TO HOME OR SELFCARE Is pt being admited?: No Does the pt Need Aspirin: No Condition: Stable Instructions: Urinary Tract Infection in Women (ED) Additional Instructions: Please take medication as prescribed. Please take antibiotics to completion. medication may turn your urine orange this is normal. Increase your water intake over the next several days. Follow-up with your primary care doctor. Please have your urine retested by her primary care physician for clearance of bacteria. Return to emergency room immediately for any new or worsening symptoms including but not limited to worsening pain, fever, vomiting, unable to tolerate by mouth intake, etc. Prescriptions: Naproxen [EC-Naprosyn] 375 mg PO BID PRN #14 tablet. PRN Reason: pain cephALEXin [Keflex] 500 mg PO BID 10 Days #20 cap Phenazopyridine [Pyridium] 100 mg PO TID #10 tab Ondansetron [Zofran Odt] 4 mg PO Q8HR PRN #7 tab.rapdis PRN Reason: Nausea And Vomiting Referrals: ALYSON SEARS MD [Primary Care Provider] - 2-3 Days JIMMY SANDOVAL MD [Staff Physician] - 2-3 Days [facility] [Provider Group] - 2-3 Days Time of Disposition: 08:24 Print Language: TURKMEN
[2020-08-01 07:48] LABS: Basophils % (Auto) 0.2 % (0.0-1.8); Eosinophils % (Auto) 0.1 % (0.0-4.3); Hematocrit 27.1 % (30.3-42.9); Hemoglobin 9.1 gm/dl (10.1-14.3); Lymphocytes # (Auto) 0.9 K/mm3 (1.2-5.4); Lymphocytes % (Auto) 6.6 % (13.4-35.0); Mean Corpuscular HGB Conc 34 % (30-34); Mean Corpuscular Volume 95 fl (79-97); Monocytes # (Auto) 0.6 K/mm3 (0.0-0.8); Monocytes % (Auto) 4.2 % (0.0-7.3); Platelet Count 242 K/mm3 (140-440); Red Blood Count 2.85 M/mm3 (3.65-5.03); Red Cell Distribution Width 13.1 % (13.2-15.2)
[2020-08-01 07:53] LABS: Bacteria,Urine 2+ /HPF (Negative); Bilirubin,Urine NEG (Negative); Blood,Urine MOD (Negative); Color,Urine Yellow (Yellow); HCG Qualitative,Urine Negative (Negative); Mucus,Urine 1+ /HPF; Urobilinogen,Urine < 2.0 mg/dL (<2.0); WBC,Urine > 182.0 /HPF (0.0-6.0)
[2020-08-01 08:08] LABS: Calcium 9.5 mg/dL (8.4-10.2)
[2020-08-01] MEDS ORDERED: LIDOCAINE-MPF (1%) 10 MG/1 ML VIAL 5 ML INFILTRATI ONE (08:12)
[2020-08-01 08:39] VITALS: BP 96/62
== END 2020-08-01 08:38 | disposition home or self-care (01) ==
LOC: ED 23:10
DX: N39.0 Urinary tract infection, site not specified (principal); D72.829 Elevated white blood cell count, unspecified; R10.9 Unspecified abdominal pain; E03.9 Hypothyroidism, unspecified; Z79.899 Other long term (current) drug therapy
CPT/HCPCS: 36415; 80048; 81001; 81025; 85025; 87086; 96372; 99283; J0696; J1885; 87076; 87186